=== PATIENT | female | born 1940 | race African-American/Black ===

== ENCOUNTER 2020-07-08 20:35 | Emergency (ER) | payer OTHER ==
[~2020-07-08] VITALS: Ht 165.1 cm; Wt 72.6 kg
[2020-07-08 20:51] VITALS: Ht 165.1 cm; Wt 72.6 kg
[2020-07-09 11:10] VITALS: BP 113/65
== END 2020-07-09 11:10 | disposition home or self-care (01) ==
LOC: ED 20:35
DX: G30.9 Alzheimer's disease, unspecified (principal); F02.80 Dementia in other diseases classified elsewhere, unspecified severity, without behavioral disturbance, psychotic disturbance, mood disturbance, and anxiety